=== PATIENT | female | born 2000 | race Two or more races ===

== ENCOUNTER 2020-12-21 14:00 | Emergency (ER) | payer BC, SELFPAY ==
[2020-12-21 14:49] VITALS: BP 107/64; PULSE 86; RESP 16; TEMP 37.3; O2SAT 100
--- NOTE | 2020-12-21 15:07 | ED.SKABFB ---
HPI - Skin/Abscess/Foreign Bdy General Chief complaint: Skin/Abscess/Foreign Body Stated complaint: cyst Time Seen by Provider: 12/21/20 15:08 Source: patient and RN notes reviewed Mode of arrival: ambulatory Limitations: no limitations History of Present Illness HPI narrative: 20-year-old female presents to the [facility] complaints of a cyst to the upper right labia. States that she tried trimming the hair around it and its reddened tender to touch. States been there for approximately 1 week. No treatment prior to arrival Denies fevers, chest pain, shortness of breath. Denies any urinary symptoms, no abdominal pain. Related Data Allergies Allergy/AdvReac Type Severity Reaction Status Date / Time No Known Allergies Allergy Verified 12/21/20 14:49 Review of Systems Review of Systems: Narrative: CONSTITUTIONAL: Denies fever, chills, or sweats. CARDIOVASCULAR: Denies chest pain, palpitations, or edema. RESPIRATORY: Denies cough or dyspnea. GASTROINTESTINAL: Denies abdominal pain, nausea, vomiting, or diarrhea. GENITOURINARY: Denies dysuria or hematuria. SKIN: Denies rash or itching. Lesion noted anterior right upper labia MUSCULOSKELETAL: Denies back pain, joint pain, or myalgia. NEUROLOGIC: Denies headache, numbness, or weakness. PSYCHIATRIC: Denies anxiety or depression. All other systems reviewed are negative, except as documented in HPI. PMFSH Comments At the time of my signature, I reviewed and agree with the nursing past medical, surgical, social, and family history. There is no relevant family history pertinent to the patient complaint. Exam Narrative: Exam Narrative: GENERAL: This is a well-nourished, well-developed patient, in no apparent distress. HEAD: normocephalic, atraumatic. EYES: PERRL. Sclera clear/white. Vision is grossly intact. EARS: External ears normal. NECK: Neck supple, non-tender. CARDIOVASCULAR: Regular rate and rhythm without murmurs, gallops, or rubs. RESPIRATORY: Clear to auscultation. Breath sounds equal bilaterally. No wheezes, rales, or rhonchi. GASTROINTESTINAL: Abdomen soft, non-tender, nondistended. Bowel sounds are active. No hepato-splenomegaly, or palpable masses. No guarding. SKIN: warm, dry, intact with no rash, good texture and turgor. Patient noted, firm, 1 cm in diameter right anterior upper labia. Cystlike. In the needle aspirate with scant clear drainage. NEURO: awake, alert, and oriented to person, place and time. There were no obvious focal neurologic abnormalities. EXTREMITIES: No joint tenderness, effusion, or edema noted. No calf tenderness. Negative Homans sign bilaterally. BACK: Nontender without deformity. No flank tenderness. Chaperoned by Brenda RN Course Vital Signs Vital signs: Vital Signs Temperature 99.2 F 12/21/20 14:49 Pulse Rate 86 12/21/20 14:49 Respiratory Rate 16 12/21/20 14:49 Blood Pressure 107/64 12/21/20 14:49 Pulse Oximetry 100 12/21/20 14:49 Temperature 99.2 F 12/21/20 14:49 Pulse Rate 86 12/21/20 14:49 Respiratory Rate 16 12/21/20 14:49 Blood Pressure 107/64 12/21/20 14:49 Pulse Oximetry 100 12/21/20 14:49 Reviewed, within defined limits MDM - Skin/Abscess/Foreign Bdy MDM Narrative Medical decision making narrative: Discharge instructions reviewed with patient, as well as provided in writing per nursing staff. The instructions also include specific and strict return/GO TO THE ER as well as f/u information. All questions have been answered, and the patient deny any further questions with discharge and discharge plan. Differential Diagnosis Differential diagnosis: Likely herpes zoster, cellulitis and other (Cyst, abscess, ingrown hair) Critical Care Time Critical Care Time Critical Care Time: No Discharge Plan Discharge Clinical Impression: Labial cyst Patient Disposition: Home, Self-Care Condition: Stable Instructions: Antibiotic Form, Cyst (ED) Additional Instructions: Apply
--- NOTE | 2020-12-21 16:29 | PC.NURSE ---
1510: after exam by provider and collection of culture, pt is to be discharged home with instructions and prescription.
== END 2020-12-21 15:26 | disposition home or self-care (01) ==
PROVIDERS: Emergency Provider Nurse Practitioner
DX: N90.7 Vulvar cyst (principal); J45.909 Unspecified asthma, uncomplicated
CPT/HCPCS: 87070; 87205; 99213; G0463